=== PATIENT | female | born 1975 | race Caucasian/White ===

== ENCOUNTER 2019-10-27 13:09 | Emergency (ER) | payer BC, OTHER ==
[2019-10-27 13:51] VITALS: BP 141/101; PULSE 91
--- NOTE | 2019-10-27 14:04 | EDM.PDOC ---
ED HPI GENERAL MEDICAL PROBLEM - General Chief Complaint: ENT Problem Stated Complaint: JAW PAIN /INFECTED TEETH Time Seen by Provider: 10/27/19 14:00 Source of Information: Reports: Patient History Limitations: Reports: No Limitations - History of Present Illness INITIAL COMMENTS - FREE TEXT/NARRATIVE: 44-year-old female presents to the ED with dental pain both left upper and lower mandibles and maxilla. The left upper third molar is broken off and only approximately a quarter of the tooth remains. There is surrounding erythema and swelling of the gingiva. No dental abscess is obvious that would benefit from drainage. On the left lower mandible there is a fracture with a missing 25 % of the posterior buccal portion of second lower molar tooth. There is some swelling of the gingiva in this area likely causing infection and pain as well. Plan she will be treated with Motrin 600 mg 1 every 6 hours as needed for pain relief. She has been taking too much Motrin tablets at home for pain relief. Percocet tabs 5 325 mg strength 1 or 2 every 4-6 hours needed for pain relief. 20 tablets provided. The antibiotic will be clindamycin 300 mg 3 times daily for the next 8 days to clear up dental infection. Onset: Gradual Onset Date: 10/25/19 Duration: Day(s):, Getting Worse Location: Reports: Face Quality: Reports: Ache (Pain both left upper and lower face) Severity: Moderate Improves with: Reports: None (Noted 10) Worsens with: Reports: Other Context: Denies: Activity (Pain to eat or drink.), Exercise, Lifting, Sick Contact, Trauma, Other Associated Symptoms: Reports: Loss of Appetite, Malaise. Denies: No Other Symptoms, Confusion, Chest Pain, Cough, cough w sputum, Diaphoresis, Fever/ Chills, Headaches, Shortness of Breath, Syncope Treatments PIPER HELPER: Reports: Other (see below) Other Treatments PIPER HELPER: motrin - Related Data Allergies Allergy/AdvReac Type Severity Reaction Status Date / Time Penicillins Allergy Rash Verified 11/03/14 06:35 codeine AdvReac Vomiting Verified 11/03/14 06:35 Sulfa (Sulfonamide AdvReac Nausea and Verified 11/03/14 06:35 Antibiotics) Vomiting Home Meds: Home Meds FLUoxetine [PROzac] 20 mg PO DAILY 04/12/14 [History] Fluticasone/Salmeterol [Advair Diskus 250-50] 2 puff INH BID 11/03/14 [History] Hydrocodone/Acetaminophen [Hydrocodon-Acetaminophen 5-325] 1 each PO Q6H PRN # 15 tablet 11/03/14 [Rx] Naproxen 500 mg PO BID #14 tablet 11/03/14 [Rx] Clindamycin HCl 300 mg PO TID #24 capsule 10/27/19 [Rx] oxyCODONE HCl/Acetaminophen [Percocet 5-325 mg Tablet] 1 - 2 each PO Q4H PRN # 20 tablet 10/27/19 [Rx] 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 Denies: Fever, Chills, Malaise, Weakness, Fatigue, Weight Loss HEENT: Reports: Dental Pain (Coming from the left upper third molar tooth which is only about 25% present. Also from the left lower mandible from dental fracture.), Other (88 sup underneath her left eye and along the angle of the mandible in the distribution of the mental nerve.) Respiratory: Reports: No Symptoms Cardiovascular: Reports: No Symptoms Endocrine: Reports: No Symptoms GI/Abdominal: Reports: No Symptoms : Reports: No Symptoms Musculoskeletal: Reports: No Symptoms Skin: Reports: No Symptoms Neurological: Reports: No Symptoms Psychiatric: Reports: Depression Hematologic/Lymphatic: Reports: No Symptoms Immunologic: Reports: No Symptoms ED EXAM, ENT - Physical Exam Exam: See Below Exam Limited By: No Limitations General Appearance: Alert, WD/WN, Mild Distress, Other (Temperature is 36.8. Pulse is 91 is sinus respiratory is 14 BP is elevated at 141 101 due to pain response. O2 sats 99% on room air) Eye Exam: Bilateral Eye: Normal Inspection, PERRL Ears: Normal TMs Mouth/Throat: Dental Pain (Has pain coming from may be residual fractured tooth left upper molar I believe the anterior portion of the molar tooth is still present. She reports fractured it by eating a potato chip 2 days ago. The surrounding gingiva is swollen and erythematous. No abscess apparent. On the left lower second molar tooth the posterior buccal portion of the tooth is broken away from a filled tooth. It too has surrounding swelling of the gingiva margin), Dental Tenderness (Left lower second molar) Head: Atraumatic, Normocephalic Neck: Normal Inspection, Supple, Non-Tender, Full Range of Motion. No: Lymphadenopathy (L), Lymphadenopathy (R) Respiratory/Chest: No Respiratory Distress, Lungs Clear, Normal Breath Sounds, No Accessory Muscle Use, Chest Non-Tender Cardiovascular: Normal Peripheral Pulses, Regular Rate, Rhythm, No Gallop, No Murmur, No Rub Course - Vital Signs Last Recorded V/S: Last Vital Signs Temp 36.8 C 10/27/19 13:48 Pulse 91 10/27/19 13:48 Resp 14 10/27/19 13:48 BP 141/101 H 10/27/19 13:48 Pulse Ox 99 10/27/19 13:48 - Radiology Interpretation Free Text/Narrative:: 44-year-old female presents to the ED with dental pain coming from 2 sources. She was eating potato chips 2 days ago and fractured 8 already fraction badly decayed left upper second molar tooth. Over half of the tooth fell out. She has approximately quarter of a second molar tooth present that has become secondarily infected with surrounding erythema and swelling of the gingiva. The posterior portion of the buccal side of the left lower second molar tooth is also broken away from the filled tooth. Surrounding gingival infection evident. She is likely going to lose this tooth as well. Plan continue Motrin 600 mg 3 6 hours as needed for pain relief. Percocet tabs 5 325 mg strength 1 or 2 every 4-6 hours for pain not relieved by Motrin alone. Clindamycin 300 mg 3 times daily for the next 8 days to clear up dental infection. She will seek out dental care as soon as she is able. Departure - Departure Time of Disposition: 14:01 Disposition: Home, Self-Care 01 Condition: Fair Clinical Impression: Dental infection - Discharge Information *PRESCRIPTION DRUG MONITORING PROGRAM REVIEWED*: Not Applicable *COPY OF PRESCRIPTION DRUG MONITORING REPORT IN PATIENT KENDAL: Not Applicable Prescriptions: Clindamycin HCl 300 mg PO TID #24 capsule oxyCODONE HCl/Acetaminophen [Percocet 5-325 mg Tablet] 1 - 2 each PO Q4H PRN # 20 tablet PRN Reason: pain relief. Instructions: Dental Abscess, [id number] Referrals: Colleen Booker PA-C [Primary Care Provider] - Forms: ED Department Discharge Additional Instructions: Evaluation in the emergency room today in regards to dental pain both upper and left lower sides of the jaw and mandible. There is a severe fracture with only a small portion of the left upper molar left in place that is causing infection. The posterior aspect of the left second lower molar is missing and also appears to have become infected. Treatment is to be Motrin 600 mg 1 every 6 hours to relieve pain and inflammation. Percocet tabs 5/325 mg tablet 1 or 2 every 4-6 hours as needed for pain relief not controlled by Motrin alone. Antibiotic is to be clindamycin 300 mg 3 times daily for the next 8 days to clear up dental infection. You will need to follow-up with dentist as soon as possible to have the fractured tooth removed. Gradual improvement over the next 3 days as the antibiotic becomes effective. Sepsis Event Note - Evaluation Sepsis Screening Result: No Definite Risk - Focused Exam Vital Signs: Vital Signs Temp Pulse Resp BP Pulse Ox 10/27/19 13:48 36.8 C 91 14 141/101 H 99 Date Exam was Performed: 10/27/19 Time Exam was Performed: 14:04
== END 2019-10-27 14:10 | disposition home or self-care (01) ==
LOC: JD.ED 13:09
DX: K04.7 Periapical abscess without sinus (principal); F17.210 Nicotine dependence, cigarettes, uncomplicated; Z88.0 Allergy status to penicillin; Z88.5 Allergy status to narcotic agent; Z88.2 Allergy status to sulfonamides; Z79.899 Other long term (current) drug therapy; Z90.710 Acquired absence of both cervix and uterus
CPT/HCPCS: 99282; 99283

== ENCOUNTER 2021-02-26 06:28 | Emergency (ER) | payer BC ==
[2021-02-26 06:39] VITALS: BP 154/98; PULSE 76
--- NOTE | 2021-02-26 07:03 | EDM.PDOC ---
ED HPI GENERAL MEDICAL PROBLEM - General Chief Complaint: Headache Stated Complaint: HEADACHE Time Seen by Provider: 02/26/21 06:55 Source of Information: Reports: Patient History Limitations: Reports: No Limitations - History of Present Illness INITIAL COMMENTS - FREE TEXT/NARRATIVE: 45-year-old female presents to the ED with a constant throbbing pulsating headache right temporal retroocular headache since 9:00 last night. He was at work and has taken Motrin 600 mg at 2100 hrs. repeated at midnight. She took Excedrin Migraine twice during the night. She is nauseated at present. Very light sensitive. No vomiting. 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 She has a history of recurrent headaches but usually not quite to this severity. She usually blames it on her allergies. She is coughing paroxysmal A with minimal sputum production for the last 2 weeks. Occasional audible wheeze. No improvement with albuterol metered-dose inhaler. No fever chills. Has retained sense of taste and smell. Onset: Gradual Onset Date: 02/25/21 Onset Time: 21:00 Duration: Hour(s):, Constant Location: Reports: Head (Headache primarily right temporal and retro-ocular) Quality: Reports: Ache, Throbbing, Other (Pulsating) Severity: Moderate (8 out of 10) Improves with: Reports: Rest (Resting with the lights off in the room is helped ease the headache a little bit.) Worsens with: Reports: Other (Headache is worsened by looking down and bright lights) Context: Denies: Activity, Exercise, Sick Contact, Trauma, Other Associated Symptoms: Reports: Cough (Intermittent), Loss of Appetite, Nausea/Vomiting (Nausea without vomiting). Denies: No Other Symptoms, Confusion, Chest Pain, cough w sputum ( paroxysmal nonproductive cough), Diaphoresis, Fever/Chills, Headaches, Malaise, Rash, Seizure, Shortness of Breath, Syncope, Weakness Treatments PRIEST: Reports: NSAIDS (Motrin), Other (see below) (Excedrin Migraine) Headache Pain Score (Numeric/FACES): 10 - Related Data Allergies Allergy/AdvReac Type Severity Reaction Status Date / Time Penicillins Allergy Rash Verified 02/26/21 06:48 codeine AdvReac Vomiting Verified 02/26/21 06:48 Sulfa (Sulfonamide AdvReac Nausea and Verified 02/26/21 06:48 Antibiotics) Vomiting Home Meds: Home Meds Albuterol Sulfate [Albuterol Sulfate Hfa] 02/26/21 [History] Fluticasone Propionate [Flovent HFA 110 MCG] 2 puff INH BID #1 inh 02/26/21 [Rx] Hydrocortisone [Hydrocortisone 1% Crm] 02/26/21 [History] Meloxicam 02/26/21 [History] 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: Psychiatric History: Reports: None - Past Surgical History HEENT Surgical History: Reports: Tonsillectomy Female Surgical History: Reports: Hysterectomy Social & Family History - Family History Family Medical History: No Pertinent Family History - Tobacco Use Tobacco Use Status *Q: Unknown Ever Used Tobacco - Caffeine Use Caffeine Use: Reports: Coffee - Living Situation & Occupation Living situation: Reports: Occupation: Employed ED ROS GENERAL - Review of Systems Review Of Systems: See Below Constitutional: Denies: Fever, Chills, Malaise, Weakness, Fatigue, Decreased Appetite, Weight Loss HEENT: Reports: Glasses, Rhinitis Respiratory: Reports: Cough (Intermittent paroxysmal nonproductive cough for over 2 weeks which is likely allergy related.) Cardiovascular: Reports: No Symptoms Endocrine: Reports: No Symptoms GI/Abdominal: Reports: No Symptoms : Reports: No Symptoms Musculoskeletal: Reports: No Symptoms Skin: Reports: No Symptoms Neurological: Reports: Headache. Denies: Confusion, Dizziness, Numbness, Pre- Existing Deficit, Seizure, Syncope, Tingling, Trouble Speaking, Difficulty Walking, Weakness, Change in Speech, Gait Disturbance Psychiatric: Reports: No Symptoms Hematologic/Lymphatic: Reports: No Symptoms - Physical Exam Exam: See Below Exam Limited By: No Limitations General Appearance: Alert, WD/WN, No Apparent Distress, Other (Examined in a dark room. Temperature is 36.8. Heart rate is 76 and sinus respiratory is 18 with O2 sats of 97% room air BP is 154/98) Eye Exam: Bilateral Eye: Normal Inspection, PERRL Throat/Mouth: Normal Inspection, Normal Lips, Normal Teeth, Normal Oropharynx, Other Head Exam: Atraumatic (Uvula is in the midline), Normocephalic Neck: Normal Inspection, Supple, Non-Tender, Full Range of Motion, Tender Lateral (Tender right lateral neck). No: Lymphadenopathy (L), Lymphadenopathy (R) Respiratory/Chest: No Respiratory Distress ( on palpation.), Lungs Clear, Normal Breath Sounds, No Accessory Muscle Use, Other. No: Wheezing Cardiovascular: Normal Peripheral Pulses (Intermittent harsh paroxysmal nonproductive cough), Regular Rate, Rhythm, No Edema, No Gallop, No Murmur, No Rub GI/Abdominal: Normal Bowel Sounds, Soft, Non-Tender, No Organomegaly, No Distention, No Abnormal Bruit Neuro Exam (Abbreviated): Alert, Oriented, CN II-XII Intact, Normal Cognition, No Motor/Sensory Deficits, Other (Normal rapid but alternating movements. No pronator drift) Extremities: Normal Inspection, Normal Range of Motion, Non-Tender, No Pedal Edema Psychiatric: Normal Affect, Normal Mood Skin Exam: Warm, Dry, Intact, Normal Color, No Rash Course - Vital Signs Last Recorded V/S: Last Vital Signs Temp 36.8 C 02/26/21 06:36 Pulse 76 02/26/21 06:36 Resp 18 02/26/21 06:36 BP 154/98 H 02/26/21 06:36 Pulse Ox 97 02/26/21 06:36 - Orders/Labs/Meds Orders: Active Orders 24 hr Category Date Time Status Dextrose 5%-0.9% NaCl [Dextrose 5%-Normal Saline] 1,000 Med 02/26/21 07:15 Active ml IV ASDIRECTED Ketorolac [Toradol] Med 02/26/21 07:15 Active 30 mg IVPUSH ONETIME Medication Orders Dextrose/Sodium Chloride (Dextrose 5%-Normal Saline) 1,000 mls @ 999 mls/hr IV ASDIRECTED MOISES Last Admin: 02/26/21 07:26 Dose: 999 mls/hr Documented by: [id number] Ketorolac Tromethamine (Ketorolac 30 Mg/Ml Sdv) 30 mg IVPUSH ONETIME MOISES Last Admin: 02/26/21 07:27 Dose: 30 mg Documented by: [id number] Meds: Medications Generic Name Dose Route Start Last Admin Trade Name Freq PRN Reason Stop Dose Admin Dextrose/Sodium Chloride 1,000 mls @ 999 mls/hr 02/26/21 07:15 02/26/21 07:26 Dextrose 5%-Normal Saline IV 999 mls/hr ASDIRECTED MOISES Administration Ketorolac Tromethamine 30 mg 02/26/21 07:15 02/26/21 07:27 Ketorolac 30 Mg/Ml Sdv IVPUSH 30 mg ONETIME MOISES Administration Discontinued Medications Generic Name Dose Route Start Last Admin Trade Name Emmett ARIAS Reason Stop Dose Admin Dexamethasone 10 mg 02/26/21 07:05 02/26/21 07:26 Dexamethasone 10 Mg/Ml Sdv IVPUSH 02/26/21 07:06 10 mg ONETIME ONE Administration Hydromorphone HCl 0.5 mg 02/26/21 07:05 02/26/21 07:27 Hydromorphone 0.5 Mg/0.5 Ml Syringe IVPUSH 02/26/21 07:06 0.5 mg ONETIME ONE Administration Metoclopramide HCl 7.5 mg 02/26/21 07:05 02/26/21 07:27 Metoclopramide 10 Mg/2 Ml Sdv IVPUSH 02/26/21 07:06 7.5 mg ONETIME ONE Administration - Radiology Interpretation Free Text/Narrative:: 45-year-old female presents to the ED due to a persistent right-sided headache identified to be within the right temporal scalp and behind her right eye. Has been present since 21 and high hours last night when she was at work and continued throughout the night. Neuro exam is normal. Plan IV D5 normal saline open. Given Toradol 30 mg IV with Dilaudid 0.5 mg IV and Reglan 7.5 mg IV for headache pain relief. - Re-Assessments/Exams Free Text/Narrative Re-Assessment/Exam: 02/26/21 08:13 Patient reports headache is pretty well gone. She will therefore be discharged home when she can catch her ride back to [place] where she resides. Departure - Departure Time of Disposition: 08:13 Disposition: Home, Self-Care 01 Condition: Fair Clinical Impression: History of chronic cough, Migraine Migraine headache Qualifiers: Migraine type: without aura Status migrainosus presence: without status migrainosus Intractability: not intractable Qualified Code(s): G43.009 - Migrain e without aura, not intractable, without status migrainosus - Discharge Information *PRESCRIPTION DRUG MONITORING PROGRAM REVIEWED*: Not Applicable *COPY OF PRESCRIPTION DRUG MONITORING REPORT IN PATIENT KENDAL: Not Applicable Prescriptions: Fluticasone Propionate [Flovent HFA 110 MCG] 2 puff INH BID #1 inh Referrals: Colleen Booker PA-C [Primary Care Provider] - Forms: ED Department Discharge Additional Instructions: Evaluation in the emergency room this morning in regards to the persistent right temporal migraine headache associate with mild nausea. You were treated with intravenous fluids and medications Toradol 30 mg, Reglan 7.5 mg, and Dilaudid 0.5 mg IV for headache relief. Second prominent was chronic paroxysmal minimally productive cough which appears to be allergy in origin. Irritant receptors in the upper airway have become inflamed and coughing continues the cycle of coughing. Suggest use of metered-dose inhaler called Flovent 110 mcg/puff. Use 2 puffs about a minute apart in the morning and before bed and use until cough is no longer present for at least 3 days. In regards to the headache, suggest home to sleep/rest to break the headache cycle. Resume regular diet and plenty of fluids when able. Sepsis Event Note (ED) - Evaluation Sepsis Screening Result: No Definite Risk - Focused Exam Vital Signs: Vital Signs Temp Pulse Resp BP Pulse Ox 02/26/21 06:36 36.8 C 76 18 154/98 H 97 - My Orders Last 24 Hours: My Active Orders 02/26/21 07:15 Dextrose 5%-0.9% NaCl [Dextrose 5%-Normal Saline] 1,000 ml IV ASDIRECTED Ketorolac [Toradol] 30 mg IVPUSH ONETIME - Assessment/Plan Last 24 Hours: My Active Orders 02/26/21 07:15 Dextrose 5%-0.9% NaCl [Dextrose 5%-Normal Saline] 1,000 ml IV ASDIRECTED Ketorolac [Toradol] 30 mg IVPUSH ONETIME
[2021-02-26] MEDS ORDERED: HYDROmorphone 0.5 MG/0.5 ML Syringe IVPUSH ONE (07:05)
[2021-02-26] MEDS ORDERED: Metoclopramide 10 MG/2 ML SDV IVPUSH ONE (07:05)
[2021-02-26] MEDS ORDERED: Dexamethasone 10 MG/ML SDV IVPUSH ONE (07:05)
[2021-02-26] MEDS ORDERED: Ketorolac 30 MG/ML SDV IVPUSH SCH (07:15)
[2021-02-26] MEDS ORDERED: Dextrose 5%-0.9% NaCl 1,000 ML IV SCH (07:15)
== END 2021-02-26 08:30 | disposition home or self-care (01) ==
LOC: JD.ED 06:28
DX: G43.009 Migraine without aura, not intractable, without status migrainosus (principal); Z88.0 Allergy status to penicillin; Z88.5 Allergy status to narcotic agent; Z88.2 Allergy status to sulfonamides; Z79.899 Other long term (current) drug therapy
CPT/HCPCS: 96374; 96375; 99283; J1100; J1170; J1885; J2765; J7042; 99284